=== PATIENT | male | born 1975 | race Hispanic/Latino ===

== ENCOUNTER 2017-05-23 09:18 | Emergency (ER) | payer OTHER ==
[~2017-05-23] VITALS: Ht 172.7 cm; Wt 72.7 kg
[2017-05-23 09:31] VITALS: BP 159/99; PULSE 99; RESP 18; O2SAT 97
--- NOTE | 2017-05-23 09:55 | ED.REPORT ---
HPI-Back Pain 40 and Over Date of Service May 23, 2017 ED Provider: Zach Arias DO Pt is a healthy 41 y/o male presenting to the ED due to work injury which occurred last week. The patient fell from a retaining wall landing on his right hip area and is now experiencing right lumbar pain. He is able to ambulate independently but with some pain. Pt denies hematuria, numbness/weakness of the lower extremities, bowel or bladder incontinence. Nursing Notes Stated Complaint: BACK PAIN Chief Complaint: Back Pain or Injury Nursing Notes Reviewed: Yes Allergies: Coded Allergies: No Known Allergies (Unverified , 05/23/17) Scheduled PRN Naproxen (Naproxen) 500 Mg Tab 500 MG PO BID PRN PRN For Pain General Time Seen by MD: 09:44 Chief Complaint Back pain Hx Obtained From: Patient Arrived By: Walk-in Sudden in Onset?: Yes Onset Occurred: 1 week ago Symptom Duration: Since onset Caused by: Fall Location: : Perispinal lumbar Quality: Painful Severity: Current: Moderate Severity: Maximum: Moderate Similar Sx Previous: No Past Medical History Past Medical History Denies Past Surgical History None reported Smoking History Never Smoker Social History Alcohol Use: "Social" Drug Use: Denies drug use Ambulatory Status Independent Review of Systems Male: Denies Hematuria Musculoskeletal: Reports: Lumbar pain Neurologic: Denies: Bladder dysfunction, Bowel dysfunction, Numbness, Weakness Complete sys rev & neg: except as marked. Physical Exam Initial Vital Signs Vital Signs (First) Date Time Temp Pulse Resp B/P Pulse Ox O2 Delivery O2 Flow Rate FiO2 05/23/17 09:31 36.8 99 18 159/99 97 Room Air Initial VS: Reviewed, Vital signs normal Head / Eyes: Atraumatic, Normocephalic ENT: Mucous membranes moist, Conjunctiva normal Neck: Supple, Non-tender, Full range of motion Extremities: Vascular intact, Neuro intact, No swelling, No tenderness Skin: Warm, Dry, No cyanosis Psychiatric: Mood/affect normal, Behavior normal, Normal thought content General/Constitutional: Awake, Alert, No acute distress, Well appearing, Cooperative, Not toxic appearing Respiratory / Chest: Breath sounds NL, Breath sounds = bilat, No respiratory distress, No rales, No rhonchi, No wheezing Cardiovascular: Heart rate NL, Regular rhythm, Heart sounds NL, No murmurs Abdomen: Atraumatic, Soft, Non-tender, No guarding, No rebound, No distention Back: Full range of motion, No midline vertebral tend Right lower paralumbar tenderness Neurologic: Oriented X3, Speech NL, No motor deficits, No sensory deficits, CN II - XII intact, Cerebellar NL, Memory NL, Gait NL Lower Extremity / Pelvis / MS: No deformity, Neurologic intact, Vascular intact , Pelvis stable, Pelvis non-tender Able to ambulate independently Interpretation & Diagnostics X-Ray Interpretation Xray Interpretation: IMPRESSION: 1. No acute osseous normality of the lumbar spine. 2. Mild degenerative changes of the lower lumbar spine and sacroiliac joints. Dictated by: Dexter Mayfield M.D. on 05/23/2017 at 10:08 Approved by: Dexter Mayfield M.D. on 05/23/2017 at 10:13 Study Performed: Lumbar spine Interpretation / Wet Read by: Interpret - Radiologist Re-Eval/Medical Decision Med Decision/Clinical Course Lumbar strain without radiculopathy or signs of fracture. No particular high-risk features. Will discharge. Return precautions given. Re-Evaluation/Progress : Time of Eval: 11:20 Re-Evaluation/Progress Note: Pt rechecked. Informed pt of plan for discharge. Pt understands and agrees with plan for discharge. F/U instructions and RTER warnings given. All questions addressed. Counseled Regarding: Diagnosis, Need for follow-up, When/why to return to ED Discharge & Departure Impression: Primary Impression: Lumbosacral strain Encounter type: initial encounter Qualified Code: S39.012A - Strain of muscle, fascia and tendon of lower back, initial encounter Disposition: Home Discharge Condition All VS Reviewed: Yes Condition: Stable Patient Instructions: Acute Low Back Pain (ED) Additional Instructions: Take naproxen. Follow up with your chiropractor. Return to the ER as needed for worsening symptoms. Scribe Attestation Portions of this note were transcribed by Silvano Pavon. I, Dr. Arias personally performed the history, physical exam and medical decision-making; I reviewed and confirmed the accuracy of the information in the transcribed note. Zach Arias DO May 23, 2017 09:55 SILVANO PAVON May 23, 2017 10:17
--- NOTE | 2017-05-23 11:15 | DRSVH ---
PROCEDURE: X-RAY LUMBAR SPINE, 2 OR 3 VIEW INDICATIONS: fall from 6 feet TECHNIQUE: 2 views of the lumbar spine were acquired. COMPARISON: None. FINDINGS: Bones: There are 5 lumbar-type vertebral bodies. The lowest intervertebral disk space is designated a s L5-S1. The vertebral body heights are well-maintained without evidence to suggest an acute compress ion fracture. The bone mineralization is within normal limits. Mild degenerative changes of the lumbar spine are primarily evident involving the lower lumbar facet joints. Intervertebral disc spaces are well maintained throughout the lumbar spine. Small developin g into disc osteophyte complexes are noted at the levels of L3-L4 and L4-L5. Bony alignment is withi n normal limits. There are mild degenerative changes of the bilateral sacroiliac joints (left greate r than right). Soft tissues: The soft tissues of the imaged abdomen and pelvis are within normal limits. IMPRESSION: 1. No acute osseous normality of the lumbar spine. 2. Mild degenerative changes of the lower lumbar spine and sacroiliac joints. Dictated by: Dexter Mayfield M.D. on 05/23/2017 at 10:08 Approved by: Dexter Mayfield M.D. on 05/23/2017 at 10:13
[2017-05-23] MEDS ORDERED: NPR500T PO (11:18)
[2017-05-23 12:14] VITALS: BP 151/99; PULSE 97; RESP 16; O2SAT 99
== END 2017-05-23 12:12 | disposition home or self-care (01) ==
LOC: SED 09:18
DX: S39.012A Strain of muscle, fascia and tendon of lower back, initial encounter (principal); W20.8XXA Other cause of strike by thrown, projected or falling object, initial encounter; Y93.9 Activity, unspecified; Y92.9 Unspecified place or not applicable; Y99.0 Civilian activity done for income or pay
CPT/HCPCS: 72100; 96372; 99284; J1885